=== PATIENT | female | born 1945 | race Asian ===

== ENCOUNTER → 2016-11-18 | Outpatient (CLI) | payer MEDICARE, BC ==
[~2016-11-18] MED LIST: ASPI325T4 PO; FER325 PO; HYDR12.58 PO; METO-448 PO; PRAV20TA63 PO
== END | disposition home or self-care (01) ==
LOC: LAB 16:08
PROVIDERS: ATTEND Internal Medicine Hematology & Oncology
DX: D58.9 Hereditary hemolytic anemia, unspecified (principal)
CPT/HCPCS: 86157; 86880; 86885